=== PATIENT | male | born 1950 | race Caucasian/White ===

== ENCOUNTER 2017-02-10 14:03 | Inpatient (IN) | payer MEDICARE, OTHER ==
[2017-02-10] MEDS ORDERED: Zofran 4 MG/2 ML VIAL IV ONE (14:16)
[2017-02-10 14:24] LABS: BASOPHIL % 0.3 % (0.0-0.4); Granulocytes % 61.9 % (36.0-66.0); Lymphocytes % 29.4 % (24.0-44.0); Mean Cell Volume 88.5 fl (78-100); Mean Corpuscular Hemoglobin 30.3 pg (26-32); Mean Platelet Volume 9.9 fl (6-9.5); Monocytes % 7.4 % (0.0-12.0); Platelet Count 487 K/mm3 (150-450); Red Blood Count 5.11 M/mm3 (4.1-5.6); Red Cell Distribution Width 13.4 % (11.5-14.0); White Blood Count 14.5 K/mm3 (4.0-10.5)
[2017-02-10] MEDS ORDERED: Zofran 4 MG/2 ML VIAL ONE (14:30)
[2017-02-10 14:48] LABS: ALBUMIN 3.5 g/dL (3.4-5.0); BILIRUBIN,TOTAL 0.4 mg/dL (0.2-1.0); Carbon Dioxide 30.8 mEq/L (21-32); Total Protein 7.7 gm/dL (6.4-8.2)
--- NOTE | 2017-02-10 14:57 | ERPHSYRPT ---
- History of Present Illness Time Seen by Provider: 02/10/17 14:11 Historian: patient, family Patient Subjective Stated Complaint: PT REPORTS BOWELS NOT MOVING SINCE MONDAY -STATES HE IS STILL PASSING GAS-PT TAKES MUSLCE RELAXERS ET HAS HX OF CONSTIPATION-REPORTS LOW ABD PAIN Triage Nursing Assessment: PT PINK WARM ET [id number] QEUSTIONS CORRECTLY-ABD TENDER TO PALP Physician History: CC: constipation Hx: 66 y/o patient of Dr Rizzo with prior stroke causing left paralysis. He has not had BM since Monday (6 days). He now has vomiting and can not eat. Subjective fever. Normal urination. Some abd pain. Has had hard stools. Symptoms moderate severe. cares for him at home. Allergies/Adverse Reactions: No Known Drug Allergies Allergy (Verified 02/10/17 14:21) Home Medications: Aspirin 81 gm Chew [Baby Aspirin 81 mg Chew] 325 mg PO TID 12/06/13 [ History] Diazepam 5 mg [Valium 5 MG] 10 mg PO Q6-8HPRN PRN 12/06/13 [History] Ergocalciferol (Vitamin D2) [Vitamin D] 1,000 unit PO DAILY 12/06/13 [History] Hydrocodone Bit/Acetaminophen [[place] 10-325 Tablet] 1 tab PO Q4-6HPRN PRN [History] Insulin Lispro Protamin/Lispro [Humalog Mix 75-25 Vial] 40 units SQ BID [History] Insulin Lispro [Humalog] 0 units SQ UD PRN 12/06/13 [History] Multivitamin [Multivitamins] 1 cap PO DAILY 12/06/13 [History] Sertraline HCl 50 mg [Zoloft 50 mg Tablet] 100 mg PO DAILY 12/06/13 [History ] Amlodipine Besylate 5 mg [Norvasc 5 mg] 5 mg PO DAILY 07/24/15 [History] Chlorpheniramine Maleate [Chlor-Trimeton Allergy] 4 mg PO TID 07/24/15 [History] Chlorthalidone 25 mg PO DAILY 02/10/17 [History] Gabapentin [Neurontin] 300 mg PO TID 02/10/17 [History] Methocarbamol 500 mg [Robaxin 500 MG] 500 mg PO BID 02/10/17 [History] Hx Tetanus, Diphtheria Vaccination/Date Given: Yes Hx Influenza Vaccination/Date Given: No Hx Pneumococcal Vaccination/Date Given: No Immunizations Up to Date: Yes - Review of Systems Constitutional: Fatigue, Malaise, Weakness, No Fever, No Chills Eyes: No Symptoms Ears, Nose, & Throat: No Symptoms Respiratory: No Cough, No Dyspnea Cardiac: No Chest Pain Abdominal/Gastrointestinal: Abdominal Pain, Nausea, Vomiting, Constipation, No Diarrhea Genitourinary Symptoms: No Dysuria Musculoskeletal: No Back Pain Skin: No Rash Neurological: Focal Weakness (left sided chronic), No Headache All Other Systems: Reviewed and Negative - Past Medical History Pertinent Past Medical History: Yes Neurological History: Stroke ENT History: No Pertinent History Cardiac History: Hypertension Respiratory History: No Pertinent History Endocrine Medical History: Diabetes Type II Musculoskeletal History: Fractures GI Medical History: Other History: No Pertinent History Psycho-Social History: Anxiety, Depression Male Reproductive Disorders: No Pertinent History Other Medical History: CONSTIPATION - Past Surgical History Past Surgical History: Yes Neuro Surgical History: Other Cardiac: No Pertinent History Respiratory: No Pertinent History Gastrointestinal: No Pertinent History Genitourinary: No Pertinent History Musculoskeletal: Other Male Surgical History: No Pertinent History Other Surgical History: LEFT LEG SURGERY; CRANIOTOMY - Social History Smoking Status: Current every day smoker How long have you smoked: 40 Exposure to second hand smoke: Yes Drug Use: none Patient Lives Alone: No - Nursing Vital Signs Nursing Vital Signs: Initial Vital Signs Temperature 98.3 F 02/10/17 14:14 Pulse Rate 104 H 02/10/17 14:14 Respiratory Rate 18 02/10/17 14:14 O2 Sat by Pulse Oximetry 97 02/10/17 14:14 Pain Scale Pain Intensity 8 - Physical Exam General Appearance: alert Eye Exam: PERRL/EOMI Ears, Nose, Throat Exam: dry mucous membranes Neck Exam: normal inspection, supple Respiratory Exam: diminished breath sounds Cardiovascular Exam: regular rate/rhythm Gastrointestinal/Abdomen Exam: soft, tenderness (diffuse with some guarding that does not localize) Male Genitalia Exam: normal genitalia Rectal Exam: normal rectal tone, other (air but no signficant stool in vault) Back Exam: normal inspection, other (sits up with assistance) Extremity Exam: normal inspection, limited range of motion (left arm and leg drawn) Neurologic Exam: alert, oriented x 3, cooperative Skin Exam: warm, dry SpO2 Interpretation: normal SpO2: 97 Oxygen Delivery: Room Air - Course Nursing assessment & vital signs reviewed: Yes EKG Interpreted by Me: RATE (97), Sinus Rhythm, NORMAL AXIS, prolonged QT interval (QTc 519), Right Bundle Branch Block (new), Non-specific ST Changes - CT Exams abd/pelvis CT Interpretation: Tele-radiologist Report (fecal stasis up to the level of the mid sigmoid colon where there is underlyine colonic mass producing partial obstruction. Tiny free fluid. ) Ordered Tests: Active Orders 24 hr Category Date Time Status EKG-ER Only STAT Care 02/10/17 14:16 Active IV Insertion STAT Care 02/10/17 14:16 Active NPO (ED) STAT Care 02/10/17 14:16 Active ABDOMEN AND PELVIS W/0 CONTRAS [CT] Stat Exams 02/10/17 14:59 Completed CBC W DIFF Stat Lab 02/10/17 14:21 Completed CMP Stat Lab 02/10/17 14:21 Completed LIPASE Stat Lab 02/10/17 14:21 Completed Lactic Acid Stat Lab 02/10/17 Completed MAGNESIUM Stat Lab 02/10/17 14:58 Completed UA W/RFX UR CULTURE Stat Lab 02/10/17 14:17 Ordered Medication Summary Generic Name Dose Route Start Last Admin Trade Name Freq PRN Reason Stop Dose Admin Ampicillin Sodium/Sulbactam Sodium 3 gm in 100 mls @ 200 mls/hr 02/10/17 15: 49 02/10/17 15:57 Unasyn 3gm / Nacl 100ml IV 02/10/17 16:18 200 mls/hr STAT STA Administration Discontinued Medications Generic Name Dose Route Start Last Admin Trade Name Freq PRN Reason Stop Dose Admin Ondansetron HCl 4 mg 02/10/17 14:16 02/10/17 14:37 Zofran 4 Mg/2 Ml Vial IV 02/10/17 14:17 4 mg STAT ONE Administration Ondansetron HCl Confirm 02/10/17 14:30 Zofran 4 Mg/2 Ml Vial Administered 02/10/17 14:31 Dose 4 mg .ROUTE .[facility] [employer] ONE Lab/Rad Data: Laboratory Result Diagrams 02/10/17 14:21 02/10/17 14:21 Laboratory Results 02/10/17 02/10/17 02/10/17 Range/Units Unknown 14:58 14:21 WBC (4.0-10.5) K/mm3 RBC (4.1-5.6) M/mm3 Hgb (12.5-18.0) gm/dl Hct (42-50) % MCV (78-100) fl MCH (26-32) pg MCHC (32-36) g/dl RDW (11.5-14.0) % Plt Count (150-450) K/mm3 MPV (6-9.5) fl Gran % (36.0-66.0) % Lymphocytes % (24.0-44.0) % Monocytes % (0.0-12.0) % Eosinophils % (0.00-5.0) % Basophils % (0.0-0.4) % Basophils # (0-0.4) Sodium 139 (136-145) mEq/L Potassium 3.0 L* (3.5-5.1) mEq/L Chloride 97 L (98-107) mEq/L Carbon Dioxide 30.8 (21-32) mEq/L Anion Gap 14.0 (5-15) MEQ/L BUN 25 H (9-20) mg/dL Creatinine 2.03 H (0.55-1.30) mg/dl Estimated GFR 35 ML/MIN Glucose 90 (70-110) MG/DL Lactic Acid 1.6 (0.4-2.0) Calcium 9.7 (8.5-10.1) mg/dL Magnesium 2.5 H (1.8-2.4) mg/dL Total Bilirubin 0.40 (0.2-1.0) mg/dL AST 25 (15-37) U/L ALT 31 (12-78) U/L Alkaline Phosphatase 76 (46-116) U/L Serum Total Protein 7.7 (6.4-8.2) gm/dL Albumin 3.5 (3.4-5.0) g/dL Lipase 72 L (73-393) U/L 02/10/17 Range/Units 14:21 WBC 14.5 H (4.0-10.5) K/mm3 RBC 5.11 (4.1-5.6) M/mm3 Hgb 15.5 (12.5-18.0) gm/dl Hct 45.2 (42-50) % MCV 88.5 (78-100) fl MCH 30.3 (26-32) pg MCHC 34.3 (32-36) g/dl RDW 13.4 (11.5-14.0) % Plt Count 487 H (150-450) K/mm3 MPV 9.9 H (6-9.5) fl Gran % 61.9 (36.0-66.0) % Lymphocytes % 29.4 (24.0-44.0) % Monocytes % 7.4 (0.0-12.0) % Eosinophils % 1.0 (0.00-5.0) % Basophils % 0.3 (0.0-0.4) % Basophils # 0.04 (0-0.4) Sodium (136-145) mEq/L Potassium (3.5-5.1) mEq/L Chloride (98-107) mEq/L Carbon Dioxide (21-32) mEq/L Anion Gap (5-15) MEQ/L BUN (9-20) mg/dL Creatinine (0.55-1.30) mg/dl Estimated GFR ML/MIN Glucose (70-110) MG/DL Lactic Acid (0.4-2.0) Calcium (8.5-10.1) mg/dL Magnesium (1.8-2.4) mg/dL Total Bilirubin (0.2-1.0) mg/dL AST (15-37) U/L ALT (12-78) U/L Alkaline Phosphatase (46-116) U/L Serum Total Protein (6.4-8.2) gm/dL Albumin (3.4-5.0) g/dL Lipase (73-393) U/L - Progress Progress Note: 02/10/17 15:58 Pt and aware of test results. Called Dr Nevarez and Dr Solis. Will admit, cover with abtx, will need sigmoidoscope and possibly colon resection with ostomy. Discussed with : Roque Will see patient in: hospital (full admit) Counseled pt/family regarding: lab results, diagnosis, need for follow-up, rad results - Departure Time of Disposition: 15:59 Departure Disposition: In-patient Admission Clinical Impression: partial colonic obstruction, Chronic renal insufficiency Condition: Stable Critical Care Time: No Referrals: MARIE RIZZO [Primary Care Provider] -
--- NOTE | 2017-02-10 15:32 | XRAY ---
Indication: Abdominal pain. Constipation. Multiple contiguous axial images obtained through the abdomen and pelvis without contrast as ordered. Comparison: None Lung bases demonstrates minimal dependent atelectasis. Heart is not enlarged. Noncontrasted stomach and bowel loops appear nonobstructed. Moderate amount of scattered colonic fecal debris seen to the level of the mid sigmoid colon where there is circumferential wall thickening with minimal stranding and intraluminal narrowing up to 6 cm in length concerning for mass. There is distal colonic bowel gas. Scattered colonic diverticulosis. Tiny right colic and right lower quadrant free fluid. No free air. Normal appendix. Left kidney is atrophic. Remaining liver, gallbladder, pancreas, spleen, adrenal glands, kidneys, ureters, and bladder appear unremarkable for noncontrast exam. Mild/moderate scattered aortoiliac calcifications without AAA. Osseous structures intact with mild degenerative changes throughout the spine and minimal dextroscoliosis. Small fatty right inguinal hernia. Impression: 1. Fecal stasis up to the level of the mid sigmoid colon where I believe there is underlying colonic mass producing partial obstruction. Tiny free fluid presumed reactive. 2. Incidental colonic diverticulosis, left renal atrophy, and small fatty right inguinal hernia. CT DI 22.06.
[2017-02-10] MEDS ORDERED: Unasyn 3GM / NaCl 100ML 3 GM/100 ML IVPB IV STA (15:49)
[2017-02-10] MEDS ORDERED: Unasyn 3GM / NaCl 100ML 3 GM/100 ML IVPB ONE (15:55)
[2017-02-10 17:41] LABS: Collection Type CCMS
[2017-02-10 17:42] LABS: ADD URINE CULTURE? NO (NO); Bilirubin NEGATIVE (NEGATIVE); Blood NEGATIVE Ery/ul (0-5); COMPLETE URINE MICROSCOPIC? YES; Epithelial Cells RARE /HPF (FEW); Glucose NEGATIVE (NEGATIVE); Hyaline Casts 0-2 /LPF (0-2); Leukocyte Esterase NEGATIVE (NEGATIVE); WBC 0-2 /HPF (0-5)
[2017-02-10] MEDS: SODIUM CHLORIDE 0.45% W/ 20 mEq KCL 1,000 ML IV SCH (17:46)
[2017-02-10] MEDS: Zofran 4 MG/2 ML VIAL IV PRN (19:37)
[2017-02-10] MEDS ORDERED: TYLENOL 325 MG PO PRN (20:45)
[2017-02-10] MEDS: Valium 5 MG PO SCH (22:06)
[2017-02-10] MEDS: Robaxin 500 MG PO SCH (22:07)
[2017-02-10] MEDS: NEURONTIN 300 MG PO SCH (22:09)
[2017-02-11] MEDS: Unasyn 1.5GM / NaCl 100ML 1.5 GM/100 ML IVPB IV SCH ×4 (00:08→17:48)
[2017-02-11] MEDS: SODIUM CHLORIDE 0.45% W/ 20 mEq KCL 1,000 ML IV SCH ×2 (03:27→20:03)
[2017-02-11 05:36] LABS: BASOPHIL % 0.4 % (0.0-0.4); Eosinophil % 2.2 % (0.00-5.0); Granulocytes % 65.1 % (36.0-66.0); Lymphocytes % 24.8 % (24.0-44.0); Mean Corpuscular Hemoglobin 30.2 pg (26-32); Mean Platelet Volume 9.9 fl (6-9.5); Monocytes % 7.5 % (0.0-12.0); Platelet Count 422 K/mm3 (150-450); Red Blood Count 4.41 M/mm3 (4.1-5.6); Red Cell Distribution Width 13.3 % (11.5-14.0); White Blood Count 11.6 K/mm3 (4.0-10.5)
[2017-02-11 05:51] LABS: ANION GAP 14.8 MEQ/L (5-15); Carbon Dioxide 29.6 mEq/L (21-32)
[2017-02-11 05:55] LABS: Potassium 2.9 mEq/L (3.5-5.1)
[2017-02-11] MEDS: Zofran 4 MG/2 ML VIAL IV PRN ×2 (06:57→12:47)
[2017-02-11] MEDS ORDERED: POTASSIUM CHLORIDE 20 mEq IN WATER 100ML 20 MEQ/100 ML BAG IV ONE (07:00)
[2017-02-11] MEDS ORDERED: Sodium Chloride 0.9% 500 ML 500 ML IV SCH ×2 (07:30)
[2017-02-11] MEDS: MORPHINE SULFATE 4 MG INJ IV PRN ×2 (07:36→11:57)
[2017-02-11] MEDS: APRESOLINE 20 MG/ML INJ IV PRN ×3 (07:37→12:17)
[2017-02-11] MEDS ORDERED: MEDICATION INTERVENTION MC PRN (07:50)
[2017-02-11] MEDS ORDERED: Robaxin 500 MG PO SCH ×2 (08:00→12:00)
[2017-02-11] MEDS ORDERED: DIPRIVAN 200 MG/20 ML IV ONE (08:00)
[2017-02-11] MEDS ORDERED: Ketamine HCl 50 MG/ML IV ONE (08:00)
[2017-02-11] MEDS: Robaxin 500 MG PO SCH ×3 (08:13→21:49)
[2017-02-11] MEDS ORDERED: Pepcid 20 MG VIAL IV SCH (09:00)
[2017-02-11] MEDS ORDERED: Lactated Ringers 1,000 ML IV SCH (09:00)
[2017-02-11] MEDS ORDERED: NON-FORMULARY ITEM (Multivitamin [Multivitamins] 1 CAP) PO SCH (10:00)
[2017-02-11] MEDS ORDERED: NON-FORMULARY ITEM (Chlorthalidone [Chlorthalidone] 25 MG) PO SCH (10:00)
[2017-02-11] MEDS ORDERED: [UNRECOGNIZED DRUG - REMARK] PO SCH (10:00)
[2017-02-11] MEDS ORDERED: ERGOCALCIFEROL 1000 UNIT PO SCH (10:00)
--- NOTE | 2017-02-11 11:18 | PCM.NOTE ---
Date and Time: 02/11/17 1112 Subjective Assessment: Patient reports that he had a large stool after his enema and his stomach felt a little bit better after this. His sigmoidoscopy was slightly delayed due to his low potassium. He is currently NPO. He was able to ambulate to the toilet this AM. - Review of Systems Constitutional: No Symptoms Eyes: No Symptoms Ears, Nose, & Throat: No Symptoms Respiratory: No Symptoms Cardiac: No Symptoms Abdominal/Gastrointestinal: Abdominal Pain Genitourinary Symptoms: No Symptoms Musculoskeletal: No Symptoms Skin: No Symptoms Objective Exam General Appearance: no apparent distress, alert, other ( at bedside) Neurologic Exam: alert, cooperative, normal mood/affect Skin Exam: normal color, warm, dry, No rash Respiratory Exam: normal breath sounds, lungs clear, No crackles/rales, No rhonchi, No wheezing Cardiovascular Exam: regular rate/rhythm, normal heart sounds, No murmur, No friction rub, No gallop Gastrointestinal/Abdomen Exam: soft, normal bowel sounds, distention, No tenderness, No mass, No guarding Extremity Exam: normal inspection, other (no c/c/e) OBJECTIVE DATA Vital Signs: Vital Signs - 24 hr Temp Pulse Resp BP Pulse Ox 02/11/17 10:31 98.5 F 103 H 20 204/91 94 L 02/11/17 10:13 98.9 F 89 18 140/68 92 L 02/11/17 09:11 97 H 140/68 02/11/17 06:58 98.9 F 89 18 181/80 92 L 02/11/17 04:00 98.1 F 87 20 178/84 91 L 02/11/17 03:43 98.6 F 92 H 22 154/77 96 02/11/17 00:00 98.6 F 92 H 22 154/77 96 02/10/17 20:00 98.4 F 89 20 157/87 94 L 02/10/17 17:18 98.4 F 104 H 18 182/87 93 L 02/10/17 16:48 98.1 F 100 H 16 206/97 95 02/10/17 15:59 97 02/10/17 15:40 95 H 18 180/93 96 02/10/17 15:21 99.1 F 02/10/17 14:59 153/88 02/10/17 14:14 98.3 F 104 H 18 97 Pain Assessment - Last Documented Pain Intensity 6 Pain Scale Used 0-10 Pain Scale Intake and Output: Intake & Output 02/09/17 02/10/17 02/11/17 02/12/17 06:59 06:59 06:59 06:59 Intake Total 1143 0 Output Total 900 Balance 243 0 Weight 83.96 kg 83.96 kg Lab Results: Accuchecks Date 02/11/17 Date 02/10/17 Time 07:00 Time 18:00 Accucheck Value: 126 Accucheck Value: 85 Accucheck Value: 70 Lab Results-Last 24 Hours 02/10/17 02/10/17 02/11/17 Range/Units 17:04 Unknown 05:25 WBC (4.0-10.5) K/mm3 RBC (4.1-5.6) M/mm3 Hgb (12.5-18.0) gm/dl Hct (42-50) % MCV (78-100) fl MCH (26-32) pg MCHC (32-36) g/dl RDW (11.5-14.0) % Plt Count (150-450) K/mm3 MPV (6-9.5) fl Gran % (36.0-66.0) % Lymphocytes % (24.0-44.0) % Monocytes % (0.0-12.0) % Eosinophils % (0.00-5.0) % Basophils % (0.0-0.4) % Basophils # (0-0.4) Sodium (136-145) mEq/L Potassium (3.5-5.1) mEq/L Chloride (98-107) mEq/L Carbon Dioxide (21-32) mEq/L Anion Gap (5-15) MEQ/L BUN (9-20) mg/dL Creatinine (0.55-1.30) mg/dl Estimated GFR ML/MIN Glucose (70-110) MG/DL Lactic Acid 1.6 (0.4-2.0) Calcium (8.5-10.1) mg/dL Prealbumin 26.4 (18.0-35.7) mg/dL Ur Collection Type CCMS Urine Color YELLOW (YELLOW) Urine Appearance CLEAR (CLEAR) Urine pH 7.0 (5-6) Ur Specific [place] 1.010 (1.005-1.025) Urine Protein 100 (Negative) Urine Ketones NEGATIVE (NEGATIVE) Urine Blood NEGATIVE (0-5) Jai/ul Urine Nitrite NEGATIVE (NEGATIVE) Urine Bilirubin NEGATIVE (NEGATIVE) Urine Urobilinogen NORMAL (0-1) mg/dL Ur Leukocyte Esterase NEGATIVE (NEGATIVE) Urine Microscopic RBC 0-2 (0-2) /HPF Urine Microscopic WBC 0-2 (0-5) /HPF Ur Epithelial Cells RARE (FEW) /HPF Hyaline Casts 0-2 (0-2) /LPF Urine Glucose NEGATIVE (NEGATIVE) mg/dL Specimen Received 02-10-17 55302/11/17 02/11/17 02/11/17 Range/Units 05:25 05:25 09:10 WBC 11.6 H (4.0-10.5) K/mm3 RBC 4.41 (4.1-5.6) M/mm3 Hgb 13.3 (12.5-18.0) gm/dl Hct 39.7 L (42-50) % MCV 90.0 (78-100) fl MCH 30.2 (26-32) pg MCHC 33.5 (32-36) g/dl RDW 13.3 (11.5-14.0) % Plt Count 422 (150-450) K/mm3 MPV 9.9 H (6-9.5) fl Gran % 65.1 (36.0-66.0) % Lymphocytes % 24.8 (24.0-44.0) % Monocytes % 7.5 (0.0-12.0) % Eosinophils % 2.2 (0.00-5.0) % Basophils % 0.4 (0.0-0.4) % Basophils # 0.05 (0-0.4) Sodium 139 (136-145) mEq/L Potassium 2.9 L* 3.2 L (3.5-5.1) mEq/L Chloride 98 (98-107) mEq/L Carbon Dioxide 29.6 (21-32) mEq/L Anion Gap 14.8 (5-15) MEQ/L BUN 22 H (9-20) mg/dL Creatinine 1.89 H (0.55-1.30) mg/dl Estimated GFR 38 ML/MIN Glucose 96 (70-110) MG/DL Lactic Acid (0.4-2.0) Calcium 8.9 (8.5-10.1) mg/dL Prealbumin (18.0-35.7) mg/dL Ur Collection Type Urine Color (YELLOW) Urine Appearance (CLEAR) Urine pH (5-6) Ur Specific [place] (1.005-1.025) Urine Protein (Negative) Urine Ketones (NEGATIVE) Urine Blood (0-5) Jai/ul Urine Nitrite (NEGATIVE) Urine Bilirubin (NEGATIVE) Urine Urobilinogen (0-1) mg/dL Ur Leukocyte Esterase (NEGATIVE) Urine Microscopic RBC (0-2) /HPF Urine Microscopic WBC (0-5) /HPF Ur Epithelial Cells (FEW) /HPF Hyaline Casts (0-2) /LPF Urine Glucose (NEGATIVE) mg/dL Specimen Received Assessment/Plan (1) Partial bowel obstruction Current Visit: Yes Status: Acute Assessment & Plan: He is going to have a sigmoidoscopy with surgeon, Dr. Fritz today. Code(s): K56.69 - OTHER INTESTINAL OBSTRUCTION (2) Colonic mass Current Visit: Yes Status: Acute Assessment & Plan: Sigmoidoscopy to evaluate today. Code(s): K63.9 - DISEASE OF INTESTINE, UNSPECIFIED (3) DM w/o complication type II Current Visit: Yes Status: Acute Assessment & Plan: On sliding scale of insulin right now and home doses of insulin on hold due to npo status. Code(s): E11.9 - TYPE 2 DIABETES MELLITUS WITHOUT COMPLICATIONS (4) Essential hypertension Current Visit: Yes Status: Acute Assessment & Plan: Home medications continued and hydralazine ordered IV as needed due to NPO status. Code(s): I10 - ESSENTIAL (PRIMARY) HYPERTENSION (5) CKD stage 4 due to type 2 diabetes mellitus Current Visit: Yes Status: Acute Assessment & Plan: Stable at this time. Code(s): E11.22 - TYPE 2 DIABETES MELLITUS W DIABETIC CHRONIC KIDNEY DISEASE; N18.4 - CHRONIC KIDNEY DISEASE, STAGE 4 (SEVERE) (6) Hypokalemia Current Visit: Yes Status: Acute Assessment & Plan: Replacing in IV fluids that have 20 meq kcl per liter and also gave extra 20 meq kcl IV once this AM. K currently 3.2. Code(s): E87.6 - HYPOKALEMIA
[2017-02-11] MEDS ORDERED: Lactated Ringers 1,000 ML IV ONE (11:27)
[2017-02-11] MEDS: NORVASC 5 MG PO SCH (12:17)
[2017-02-11] MEDS: VITAMIN D PO SCH (12:21)
[2017-02-11] MEDS: Valium 5 MG PO SCH ×3 (12:21→21:44)
[2017-02-11] MEDS: NEURONTIN 300 MG PO SCH ×3 (12:22→21:42)
[2017-02-11] MEDS: ZOLOFT 50 MG TABLET PO SCH ×2 (12:24→21:43)
[2017-02-11] MEDS: hydroDIURIL 25 MG PO SCH (12:30)
[2017-02-11] MEDS: THERAGRAN MULTIVITAMIN PO SCH (12:49)
--- NOTE | 2017-02-11 15:07 | CONS ---
CONSULT DATE: 02/10/17 HISTORY OF PRESENT ILLNESS: The patient is a 66 y/o gentleman who apparently had a stroke back in 2004. He had some flaccidity of his left side. Somewhere over the past week or so, he has been passing flatus, but last bowel movement was 5 or 6 days ago. He denied any bloody stools. He did have loose stools prior to that. PAST MEDICAL/SURGICAL HISTORY: He had some leg surgery, what sounds like a fracture, in the past. He also had a craniotomy which sounds like it was a decompressing craniotomy. He said they took a plate of his skull off and kept in the freezer for 6 weeks and then put it back. Otherwise, had history of anxiety, depression, hypertension, diabetes, a little bit overweight, has had some constipation. He denied any prior abdominal surgery. HOME MEDICATIONS: Has been on aspirin, valium, vitamin D2, [place], Humalog, multivitamins, Zoloft, Norvasc. ALLERGIES: NKDA. FAMILY HISTORY: He had a cousin that had colon cancer in the past. He denied any inflammatory bowel issues. He has some heart disease in the family as well. REVIEW OF SYSTEMS: Otherwise, 12 systems reviewed per admission assessment. He said he had a temperature of 99, but has not had a high fever. He did have some emesis. Although he had a CT scan, did not really show distended small bowel, just gas and stool filled fecal stasis colon with some gas distal to the narrowed area of the sigmoid colon. No free air. No large collections. Has some diverticulosis on CT scan. WBC was 14. Lactic acid was 1.6. Hgb 15.5, platelets 487,000. Liver function tests fairly unremarkable. He has an atrophic left kidney as well on CT scan. CT scan reviewed report noted. PHYSICAL EXAMINATION: His last temperature was 98.3. His BP 153/88, pulse 95. GENERAL: No acute distress. HEENT: Sclerae nonicteric. NECK: No JVD. CHEST: Equal excursion. Nonlabored breathing. CVS: Regular rate and rhythm. ABDOMEN: Soft. He is a little bit overweight. He does have some distention, some minimal tenderness. No rebound or guarding currently. No peritoneal signs. EXTREMITIES: No significant edema. NEURO: He has some flaccidity on the left side from prior stroke. Has the craniotomy scar from his prior surgery. IMPRESSION: 1. 66 YEAR OLD GENTLEMAN WITH SOME CONSTIPATION. HE IS PASSING FLATUS. His CT scan shows a narrowed area with the radiologist's question of mass in his sigmoid colon. He says he has not had a prior colonoscopy. Whether this is neoplasia or malignancy vs colitis vs diverticular stricture is unclear at this point. Feel he would benefit from some enemas from down below and a colonoscopy. If truly a high grade stricture or mass, then likely he would benefit from laparotomy/resection, possible temporary ostomy pending operative findings. He was explained all of this in detail, but is adamantly refusing to undergo any laparotomy or bowel resection here. He is only agreeable to obtaining more information with endoscopy. If he has any surgery, he wants to be transferred to [facility] according to the patient. This was not relayed to me from the Emergency Room or to the Emergency Room physician. Otherwise, he was explained if he remains in the hospital as he is not completely obstructed and nontoxic at this point and as the OR team is not here, we could set up and do a colonoscopy/endoscopy first thing in the morning tomorrow when OR time can be arranged. General risks of bleeding; infection; risk of bowel injury or perforation possibly requiring emergent surgery as well as risk of anesthesia or sedation; risk of missed or nondiagnosis or inability to identify the area in question. He also understands that short of beginning to arrange for transfer if he wants it, but likely if we found those findings on endoscopy that would recommend surgery and then longer waiting to delay accepting physician from being able to have him transferred in a timely fashion could worsen his prognosis or risk further bowel problems and even possible perforation down the road if for whatever reason they were unable to take him for a couple of days or bed availability issues. He completely understands this, but is still not agreeing to any open surgical intervention here. He is only agreeing and insists on rather than being working on transfer right now, he is only agreeing to proceed with endoscopy to get more information at this point. Therefore, he remains in the hospital. Will set up endoscopy after a couple enemas immediately prior to the procedure. I spoke with Dr. Nevarez and updated her of the fact that the patient would want to be transferred. I felt from CT findings that likely he would need surgery and she understands and will see the patient later this evening. Thank you for the consult.
--- NOTE | 2017-02-11 15:31 | HP ---
HISTORY OF PRESENT ILLNESS: This is a 66 y/o patient of Dr. Kaiden Baker'ez who presented to the Emergency Department. The patient reports that he has been having problems for 2 weeks or more with first very hard stools and then loose stools and then not being able to have a stool. He thinks his last bowel movement was 6 days ago. He reports a sharp pain on his left side whenever he would try to strain to have a hard stool 2 weeks ago. He tried taking prune juice, MOM, and coffee or tea all at the same time and he had a small amount of result with this. He has felt bloated with his abdomen being tender. He reports nausea with eating, sweating, and tactile fevers for the past 2 weeks and then vomiting for the past 2 days. He has even been unable to keep fluids down he states. He did try to take his morning medications after eating his breakfast this morning. He has never had a colonoscopy in the past. He reports he has been gaining weight. REVIEW OF SYSTEMS: Denies dysuria or hematuria. He states sometimes he has trouble urinating because his muscles are tense due to his history of stroke. No cough. No shortness of breath. No lower extremity edema. No rashes. PAST MEDICAL HISTORY: Anxiety, diabetes mellitus type 2, hypertension, a stroke that affected the left side, status post craniotomy, tobacco abuse, and chronic kidney disease stage IV which he sees Dr. Schwartz for. PAST SURGICAL HISTORY: Right craniotomy in 2004. He has a plate in his left lower leg. SOCIAL HISTORY: He smokes 1/2 pack per day. States he is trying to cut back and used to smoke 2 packs per day. He denies any need for nicotine patch. No alcohol use. States he quit 12 years ago. No illicit drugs. He is and lives at home with his . FAMILY HISTORY: His mother is and had Alzheimer's. His father is and had congestive heart failure. His brother is and had congestive heart failure. CURRENT MEDICATIONS: Humalog mix 75/25 40 units bid, NovoLog FlexPen tid per sliding scale up to 50 units, aspirin 325 mg PO daily, chlorpheniramine 4 mg tid PRN allergies, methocarbamol 500 mg tablets 1/2 tablet in the AM, 1/2 tablet at noon, and 1 tablet HS, sertraline 100 mg tablets 1/2 in the AM and 1/2 at noon, diazepam 5 mg tid, gabapentin 300 mg tid, Chlorthalidone 25 mg daily in the AM, amlodipine 10 mg daily, multivitamin 1 tablet daily, vitamin D 1000 units daily, vitamin B complex 1 tab daily. ALLERGIES: NKDA. HE REPORTS HE HAS BEEN UNABLE TO TOLERATE ANY STATINS THOUGH DUE TO MUSCLE PAIN IN THE PAST. PHYSICAL EXAMINATION: VITAL SIGNS: Temperature current 98.4, temperature maximum 99.1, heart rate 89-104, respiratory rate 16-20, O2 saturation 90-97% on room air, BP 157-206/87-97, currently 157/87, weight 83.9 Kg. GENERAL: The patient is lying in bed a pleasant, talkative man in no acute distress. His is at the bedside. CVS: He has a regular rate and rhythm. No murmurs, gallops, or rubs are appreciated. CHEST: Clear to auscultation when auscultated anteriorly. ABDOMEN: Distended with mild tenderness throughout, worse in the left lower quadrant. No guarding. No rigidity. He has hypoactive bowel sounds. He is passing gas while I am in the room. EXTREMITIES: No clubbing, cyanosis, or edema. Strength is 4/5 in his left foot and 0/5 in his left hand. SKIN: Warm, dry, and intact. LABORATORY DATA: His WBC was 14,500 with 61% neutrophils, 29% lymphocytes. Potassium 3.0, chloride 97, creatinine 2.03, magnesium 2.5, lipase 72. UA was negative. CT was read as fecal stasis up to the level of the mid sigmoid colon with possible underlying colonic mass producing partial obstruction. Tiny free air presumed reactive. Incidental colonic diverticulosis. Left renal atrophy and small fatty right inguinal hernia. Please see the radiologist's report for the full dictation. EKG is sinus rhythm with a rate of 97, RBBB. This has changed from previous EKG in 2014 that did not have a RBBB. ASSESSMENT AND PLAN: 1. PARTIAL BOWEL OBSTRUCTION. Dr. Solis, the general surgeon, has been consulted and plans to do a flexible sigmoidoscopy tomorrow to evaluate. The patient has voiced both to Dr. Solis and to myself that if he needs surgery, he wants to be transferred to [facility] in [place]. I explained to the patient for this to happen I would have to have an accepting physician for this and the patient understands. At this time, will await the flexible sigmoidoscopy here with Dr. Solis, general surgeon, in the AM. 2. COLON MASS. Plan as above. 3. DIABETES MELLITUS TYPE 2. His blood sugars are currently under control. Will hold his home insulin and use low-dose sliding scale at this time. 4. HYPERTENSION. I have resumed his home antihypertensive and will also order hydralazine IV PRN for hypertension. 5. HISTORY OF STROKE WITH SOME SPASTICITY. Will continue with his home medications. 6. HISTORY OF CHRONIC KIDNEY DISEASE STAGE IV. He sees Dr. Schwartz, industrial maintenance repairer helper. Will continue with gentle IV rehydration. 7. HYPOKALEMIA. Will recheck his potassium after he has gotten some IV fluids with potassium in them.
--- NOTE | 2017-02-11 16:07 | OP ---
THIS REPORT WAS AMENDED ON 02/18/17. SURGERY DATE: 02/11/17 SURGERY TIME: 1045 PREOPERATIVE DIAGNOSIS: 1. QUESTION OF PARTIAL OBSTRUCTION SECONDARY TO QUESTION OF SIGMOID STRICTURE OR MASS. POSTOPERATIVE DIAGNOSIS: 1. POOR BOWEL PREP LIMITING EXAM. 2. DIVERTICULOSIS. 3. SMALL RAISED LESION VS EARLY HYPERPLASTIC LESION OR POLYP. 4. SMALL INTERNAL/EXTERNAL HEMORRHOIDS. 5. NO VISIBLE COLON MASS WITH THE NARROWING DUE TO SPASM FROM DIVERTICULAR DISEASE OR NOT IS UNCLEAR INCOMPLETE COLON EXAM SECONDARY TO VERY POOR PREP. RECOMMEND GASTROGRAFIN ENEMA FOLLOWED BY BARIUM ENEMA IF NEEDED FOR FURTHER EVALUATION. PROCEDURE: 1. Flexible sigmoidoscopy with cold biopsy small raised lesion vs hyperplastic lesion sigmoid colon. SURGEON: Dr. Delonte Solis. ANESTHESIA: MAC. ESTIMATED BLOOD LOSS: Minimal. INDICATIONS: As noted above and as outlined per the surgical consult. Consent was obtained. DESCRIPTION OF PROCEDURE AND FINDINGS: The patient was taken to the OR. MAC anesthesia was introduced. After official time-out, no disagreement in planned procedure. There was quite a delay in correcting the patient's potassium as the labs were drawn late and final anesthesia approved. He was taken to the OR. Consent had been obtained. He did not have any further questions. Digital rectal exam did not reveal any rectal masses. He did have some small internal/external hemorrhoids. Video colonoscope inserted and passed up through the poorly prepped, stool laden rectum to the distal part of the sigmoid colon. The scope was able to be navigated. He had diverticulosis. He had a couple of small raised lesions vs early polyps vs hyperplastic lesions removed with hot biopsy forceps and brief bursts of cautery. Took some time, but slowly, carefully, this tortuous sigmoid colon navigation was accomplished up to 45-50 cm scope level at which point there was large stool ball. Whether this was the fecal stasis seen on the CT scan was unclear. There had been no obvious visible mass causing this problem. Whether there was some narrowing secondary to his diverticular disease or whether he had had spasm secondary to diverticular disease is unclear as there did not appear to be any obvious mass or any tight stricture up to the point where the scope could be passed, but again reached a wall of solid stool. Was unable to irrigate or suction through the scope to allow for any further safe passage of the scope more proximally. The scope was withdrawn. Again, a couple small raised lesions. Whether these were just simple hyperplastic polyps vs early true polyps, were removed with hot biopsy forceps and brief bursts of cautery. Good hemostasis was noted. Had some small internal/external hemorrhoids. Again, very poor prep with a large amount of solid and semi-solid stool occluding the colon limiting the exam for other small lesions. The scope was withdrawn. Findings discussed with the family out in the waiting area. It was felt that ultimately, although no obvious mass had been noted, it was felt he definitely would benefit from Gastrografin enema followed by possible barium enema for further evaluation. The patient and his family are not interested in any open surgery here. If he so desires, could be transferred to his [facility] if he would consider any surgery to have that test performed. Will leave that up to the patient and his PCP. Again, no visible mass up to the point where the scope could be passed to the solid wall of stool. Whether narrowing on CT scan secondary to diverticular disease without super tight stricture or whether there is a more proximal mass or stricture or narrowing is unclear at this point. Otherwise, no other emergent surgical intervention necessary at this time. Continue work-up and if persistent narrowed area noted, patient wants surgery in [facility] if needed.
[2017-02-11] MEDS: NovoLOG Insulin SQ PRN (21:51)
[2017-02-12] MEDS: Unasyn 1.5GM / NaCl 100ML 1.5 GM/100 ML IVPB IV SCH ×4 (00:34→18:24)
[2017-02-12 05:46] LABS: BASOPHIL % 0.6 % (0.0-0.4); Eosinophil % 2.5 % (0.00-5.0); Granulocytes % 61.8 % (36.0-66.0); Lymphocytes % 25.7 % (24.0-44.0); Mean Cell Volume 91.6 fl (78-100); Mean Corpuscular Hemoglobin 30.2 pg (26-32); Mean Platelet Volume 9.8 fl (6-9.5); Monocytes % 9.4 % (0.0-12.0); Platelet Count 361 K/mm3 (150-450); Red Blood Count 3.94 M/mm3 (4.1-5.6); Red Cell Distribution Width 13.5 % (11.5-14.0); White Blood Count 9.1 K/mm3 (4.0-10.5)
[2017-02-12 06:05] LABS: ANION GAP 13.6 MEQ/L (5-15); Carbon Dioxide 29.9 mEq/L (21-32)
[2017-02-12 06:20] LABS: Potassium 2.9 mEq/L (3.5-5.1)
[2017-02-12] MEDS ORDERED: Sodium Chloride 0.9% 500 ML 500 ML IV SCH (06:45)
[2017-02-12] MEDS: POTASSIUM CHLORIDE 20 mEq IN WATER 100ML 20 MEQ/100 ML BAG IV SCH ×2 (07:49→10:19)
[2017-02-12] MEDS: Robaxin 500 MG PO SCH ×3 (08:02→21:24)
[2017-02-12] MEDS: SODIUM CHLORIDE 0.45% W/ 20 mEq KCL 1,000 ML IV SCH ×2 (08:11→19:59)
[2017-02-12] MEDS: NEURONTIN 300 MG PO SCH ×3 (09:30→21:24)
[2017-02-12] MEDS: NORVASC 5 MG PO SCH (09:30)
[2017-02-12] MEDS: Valium 5 MG PO SCH ×3 (09:31→21:24)
[2017-02-12] MEDS: hydroDIURIL 25 MG PO SCH (09:31)
[2017-02-12] MEDS: THERAGRAN MULTIVITAMIN PO SCH (09:32)
[2017-02-12] MEDS: ZOLOFT 50 MG TABLET PO SCH ×2 (09:33→21:24)
[2017-02-12] MEDS: VITAMIN D PO SCH (09:33)
--- NOTE | 2017-02-12 10:07 | XRAY ---
Indication: Abdominal mass. Comparison: None KUB demonstrates mild/moderate scattered colonic fecal debris throughout without obstruction. No free air. Solid organs unremarkable. Lung bases clear. Osseous structures intact with minimal remote appearing T12 wedging deformity. Comment: Preliminary interpretation was made by [facility]. No discrepancy.
[2017-02-12] MEDS: MORPHINE SULFATE 4 MG INJ IV PRN (10:50)
--- NOTE | 2017-02-12 11:01 | PCM.NOTE ---
Date and Time: 02/12/17 1056 Subjective Assessment: Patient reports continued abdominal pain in the left lower quadrant. His is at the bedside. They report that if needed, he would be willing to transfer by ambulance to [place] for surgical care. They want to wait until he has the gastrograffin enema tomorrow that has been ordered by Dr. Fritz. They report they like a surgeon at [place] by the name of Dr. Osullivan who helped take care of one of their family members in the past. He reports some nausea with taking the liquids and passing gas and continuing to belch. He denies passing any stool since yesterday. - Review of Systems Constitutional: No Symptoms Eyes: No Symptoms Ears, Nose, & Throat: No Symptoms Respiratory: No Symptoms Cardiac: No Symptoms Abdominal/Gastrointestinal: Abdominal Pain, Constipation Genitourinary Symptoms: No Symptoms Musculoskeletal: No Symptoms Skin: No Symptoms Objective Exam General Appearance: no apparent distress Neurologic Exam: alert, cooperative, normal mood/affect Skin Exam: normal color, warm, dry Respiratory Exam: normal breath sounds, lungs clear, No crackles/rales, No rhonchi, No wheezing Cardiovascular Exam: regular rate/rhythm, normal heart sounds, No murmur, No friction rub, No gallop Gastrointestinal/Abdomen Exam: soft, normal bowel sounds, tenderness, distention , No guarding Extremity Exam: normal inspection, other (no c/c/e) OBJECTIVE DATA Vital Signs: Vital Signs - 24 hr Temp Pulse Resp BP Pulse Ox 02/12/17 07:06 98 F 89 20 150/74 95 02/12/17 04:00 98.7 F 91 H 20 148/70 94 L 02/12/17 00:00 99.5 F 96 H 20 140/72 94 L 02/11/17 20:00 98.8 F 101 H 20 150/69 95 02/11/17 16:35 18 92 L 02/11/17 16:00 99.1 F 96 H 18 162/74 89 L 02/11/17 13:16 98.1 F 95 H 18 188/86 92 L Oxygen-Last 24 hours O2 Percentage 2 Liters = 28% O2 Percentage 2 Liters = 28% O2 Percentage 2 Liters = 28% O2 Percentage 2 Liters = 28% O2 Percentage 2 Liters = 28% Pain Assessment - Last Documented Pain Intensity 4 Pain Scale Used 0-10 Pain Scale Intake and Output: Intake & Output 02/10/17 02/11/17 02/12/17 02/13/17 06:59 06:59 06:59 06:59 Intake Total 1149 1949 420 Output Total 900 750 Balance 243 1199 420 Weight 83.96 kg 83.96 kg Lab Results: Accuchecks Date 02/12/17 Date 02/11/17 Date 02/11/17 Time 07:30 Time 16:00 Time 11:30 Accucheck Value: 157 Accucheck Value: 226 Accucheck Value: 166 Accucheck Value: 165 Lab Results-Last 24 Hours 02/12/17 02/12/17 Range/Units 05:00 05:24 WBC 9.1 (4.0-10.5) K/mm3 RBC 3.94 L (4.1-5.6) M/mm3 Hgb 11.9 L (12.5-18.0) gm/dl Hct 36.1 L (42-50) % MCV 91.6 (78-100) fl MCH 30.2 (26-32) pg MCHC 33.0 (32-36) g/dl RDW 13.5 (11.5-14.0) % Plt Count 361 (150-450) K/mm3 MPV 9.8 H (6-9.5) fl Gran % 61.8 (36.0-66.0) % Lymphocytes % 25.7 (24.0-44.0) % Monocytes % 9.4 (0.0-12.0) % Eosinophils % 2.5 (0.00-5.0) % Basophils % 0.6 (0.0-0.4) % Basophils # 0.05 (0-0.4) Sodium 139 (136-145) mEq/L Potassium 2.9 L* (3.5-5.1) mEq/L Chloride 98 (98-107) mEq/L Carbon Dioxide 29.9 (21-32) mEq/L Anion Gap 13.6 (5-15) MEQ/L BUN 18 (9-20) mg/dL Creatinine 1.87 H (0.55-1.30) mg/dl Estimated GFR 39 ML/MIN Glucose 147 H (70-110) MG/DL Calcium 8.7 (8.5-10.1) mg/dL Radiology Exams: Radiology Procedures Category Date Time Status BARIUM ENEMA Routine Exams 02/13/17 08:00 Ordered KUB Routine Exams 02/12/17 08:00 Completed Assessment/Plan (1) Partial bowel obstruction Current Visit: Yes Status: Acute Assessment & Plan: General surgeon, Dr. Fritz is planning on a gastrograffin enema tomorrow. Nursing reports this cannot be done on the weekends because the radiologist has to be present and he is not here on the weekends. Continue morphine as needed for pain. Code(s): K56.69 - OTHER INTESTINAL OBSTRUCTION (2) Colonic mass Current Visit: Yes Status: Acute Code(s): K63.9 - DISEASE OF INTESTINE, UNSPECIFIED (3) DM w/o complication type II Current Visit: Yes Status: Acute Assessment & Plan: Stable with sliding scale as patient is not taking much by mouth right now. Code(s): E11.9 - TYPE 2 DIABETES MELLITUS WITHOUT COMPLICATIONS (4) Essential hypertension Current Visit: Yes Status: Acute Assessment & Plan: Better controlled now than when he first came into the hospital. Continue current medications. Code(s): I10 - ESSENTIAL (PRIMARY) HYPERTENSION (5) CKD stage 4 due to type 2 diabetes mellitus Current Visit: Yes Status: Acute Assessment & Plan: Stable. Code(s): E11.22 - TYPE 2 DIABETES MELLITUS W DIABETIC CHRONIC KIDNEY DISEASE; N18.4 - CHRONIC KIDNEY DISEASE, STAGE 4 (SEVERE) (6) Hypokalemia Current Visit: Yes Status: Acute Assessment & Plan: Patient given another 40 MeQ of potassium chloride today. Code(s): E87.6 - HYPOKALEMIA
[2017-02-12] MEDS: NovoLOG Insulin SQ PRN ×2 (11:20→16:17)
[2017-02-13] MEDS: Unasyn 1.5GM / NaCl 100ML 1.5 GM/100 ML IVPB IV SCH ×3 (00:16→12:26)
[2017-02-13 05:33] LABS: BASOPHIL % 0.6 % (0.0-0.4); Eosinophil % 5.7 % (0.00-5.0); Granulocytes % 63.4 % (36.0-66.0); Lymphocytes % 21.6 % (24.0-44.0); Mean Cell Volume 91.5 fl (78-100); Mean Corpuscular Hemoglobin 30.5 pg (26-32); Monocytes % 8.7 % (0.0-12.0); Platelet Count 327 K/mm3 (150-450); Red Blood Count 3.63 M/mm3 (4.1-5.6); Red Cell Distribution Width 13.1 % (11.5-14.0)
[2017-02-13 06:12] LABS: ANION GAP 11.3 MEQ/L (5-15); Carbon Dioxide 29.1 mEq/L (21-32)
[2017-02-13 06:14] LABS: Potassium 2.9 mEq/L (3.5-5.1)
[2017-02-13] MEDS ORDERED: Sodium Chloride 0.9% 500 ML 500 ML IV SCH (06:45)
[2017-02-13] MEDS: POTASSIUM CHLORIDE 20 mEq IN WATER 100ML 20 MEQ/100 ML BAG IV SCH ×2 (06:49→08:32)
[2017-02-13] MEDS: APRESOLINE 20 MG/ML INJ IV PRN ×2 (07:36→13:00)
[2017-02-13] MEDS: Robaxin 500 MG PO SCH ×2 (08:32→12:19)
[2017-02-13] MEDS: NORVASC 5 MG PO SCH (09:10)
[2017-02-13] MEDS: Valium 5 MG PO SCH ×2 (09:10→14:49)
[2017-02-13] MEDS: NEURONTIN 300 MG PO SCH ×2 (09:10→14:53)
[2017-02-13] MEDS: hydroDIURIL 25 MG PO SCH (09:10)
[2017-02-13] MEDS: THERAGRAN MULTIVITAMIN PO SCH (09:10)
[2017-02-13] MEDS: MORPHINE SULFATE 2 MG INJ IV PRN ×2 (09:10→13:10)
[2017-02-13] MEDS: ZOLOFT 50 MG TABLET PO SCH (09:11)
[2017-02-13] MEDS: VITAMIN D PO SCH (09:11)
[2017-02-13 11:42] VITALS: BP 199/88; PULSE 111; O2SAT 95
--- NOTE | 2017-02-13 14:00 | DS ---
DISCHARGE DIAGNOSES: 1) PARTIAL LARGE BOWEL OBSTRUCTION. 2) COLONIC MASS. 3) DIABETES MELLITUS TYPE 2. 4) HYPERTENSION. 5) CHRONIC KIDNEY DISEASE STAGE IV DUE TO DIABETES. 6) HYPOKALEMIA. CONSULTS: Dr. Desmond Solis with general surgery. PROCEDURES: Flexible sigmoidoscopy with cold biopsy on 02/11/2017. DISCHARGE PHYSICAL EXAMINATION: VITALS: Temperature current 98.3F, temperature max 98.4F, heart rate 85 to 111, respiratory rate 18 to 22, blood pressure 148 to 200 over 70 to 90 currently 199/88. Oxygen saturation 92 to 96% on 2 liters cannula. GENERAL: The patient is lying in bed in no acute distress. He is alert, oriented and talkative. His is at the bedside. CVS: He has a regular rate and rhythm. No murmurs, gallops or rubs are appreciated. CHEST: Clear to auscultation bilaterally. No crackles or wheezes. ABDOMEN: Distended with normal bowel sounds. Tenderness over the right and left lower quadrant. No guarding. No rigidity. EXTREMITIES: No clubbing, cyanosis or edema. SKIN: Warm, dry and intact. HOSPITAL COURSE: 1) Partial large bowel obstruction this was seen on CT scan that was done on his admission on 02/10/2017: The CT was read as fecal stasis at the level of the mid sigmoid colon. The radiologist thought there was an underlying colonic mass producing partial obstruction. He also noted diverticulosis. Please see the radiologist report for the full dictation. The patient was admitted through the emergency room for general surgery consultation. The general surgeon saw him on the day of his admission. He told the general surgeon that he did not want to have surgery at our hospital but was willing to have the flexible sigmoidoscopy to try to further evaluate the problem this was done on 02/11/2017 and a biopsy was taken. The surgeon noted there was poor prep and they still could not really tell what was going on. The general surgeon had ordered Gastrografin enema. However the radiology department let the surgeon know that this could not be done due to having had the biopsy taken. The patient continued to request to transfer at this time to another hospital for possible surgical intervention as he does not want to have surgery here at our hospital. The patient was on Unasyn during his entire hospitalization this was started when his white blood cell count was high on admission at 14,500. On the day of discharge his white blood cell count was normal at 9,000. The patient was afebrile during his hospitalization. He could pass gas and belch but after his prep for the sigmoidoscopy he did not have any further stools after this. His lower abdominal pain was controlled with morphine. 2) Colonic mass: Again there was a biopsy taken from the flexible sigmoidoscopy, management as above for the partial large bowel obstruction. 3) Diabetes mellitus type 2: He was on a sliding scale of NovoLog at a low dose. His home doses of insulin had been held as he was not taking much by mouth. His blood sugars ranged from 160 to 220's during his hospitalization. 4) Hypertension: He has a long history of hypertension. He was continued on his home antihypertensive but continued to have high blood pressures and hydralazine 20 mg IV every four hours as needed for systolic blood pressure above 160. He was also on hydrochlorothiazide 1 tablet p.o. daily, Norvasc 10 mg p.o. daily. 5) Chronic kidney disease stage 4 due to diabetes and hypertension: His creatinine was stable during his hospitalization. 6) Hypokalemia. He continued to require IV replacement of potassium chloride even though he had 20 mEq/liter in his fluids that was running 80 ml/hour. The morning of discharge his potassium was 2.9 and he was receiving 40 mEq potassium chloride rider. On admission his magnesium had been slightly elevated at 2.5. DISPOSITION: The patient was discharged to [facility] in [place] with Dr. Zhang Guadalupe accepting as the hospitalist and they reported the colorectal surgeon was willing to consult. The patient was transferred in stable condition as he did not want to have surgery here at our hospital. We did not have any services left to offer him at this time for this partial large bowel obstruction.
== END 2017-02-13 15:25 | disposition short-term general hospital (02) | DRG 389 ==
LOC: ED 14:03 → MED SURG 16:46
PROVIDERS: ADMIT Family Medicine; ATTEND Family Medicine
PROC: 0D5N8ZZ Destruction of Sigmoid Colon, Via Natural or Artificial Opening Endoscopic (ICD-10-PCS; principal; 2017-02-11)
DX: K56.60 Unspecified intestinal obstruction (principal); N18.4 Chronic kidney disease, stage 4 (severe); K63.9 Disease of intestine, unspecified; E11.22 Type 2 diabetes mellitus with diabetic chronic kidney disease; I12.9 Hypertensive chronic kidney disease with stage 1 through stage 4 chronic kidney disease, or unspecified chronic kidney disease; E87.6 Hypokalemia; K57.30 Diverticulosis of large intestine without perforation or abscess without bleeding; K64.8 Other hemorrhoids; K64.4 Residual hemorrhoidal skin tags; Z86.73 Personal history of transient ischemic attack (TIA), and cerebral infarction without residual deficits
CPT/HCPCS: 00810; 36000; 36415; 74000; 74176; 80048; 80053; 81000; 82962; 83605; 83690; 83735; 84132; 84134; 85025; 88305; 93005; 96365; 96374; 99285; J0295; J0360; J2270; J2405; J2704; J3480; A9270-GY